=== PATIENT | male | born 1970 ===

== ENCOUNTER 2017-05-10 02:30 | Day surgery (SDC) | payer OTHER ==
[~2017-05-10] VITALS: Ht 177.8 cm; Wt 99.3 kg
[~2017-05-10 02:30] MED LIST: AMLO-96 PO; LOSA50TA72 PO; METO25TA23 PO
[2017-05-10] MEDS: NORMOSOL R SOLN(*) 1000 ML BAG 1,000 ML IV PRN ×2 (10:07→13:45)
[2017-05-10 10:19] VITALS: BP 154/97
[2017-05-10] MEDS ORDERED: BUPIV/EPI 0.25% 1:200,000 50ML INFIL ONE (10:30)
[2017-05-10] MEDS ORDERED: MORPHINE 10 MG/ML SYR ONE ×2 (10:31→11:29)
[2017-05-10] MEDS ORDERED: NS(*) 0.9% 10 ML VIAL 0 ML ONE (10:32)
[2017-05-10] MEDS ORDERED: BUPIVACAIN 0.25% INJ 50ML VIAL ONE ×2 (10:32→11:29)
[2017-05-10] MEDS ORDERED: LIDO/EPI 1% MDV 1:100,000 20ML INFIL ONE ×2 (10:33→11:29)
[2017-05-10] MEDS ORDERED: NS(*) 0.9% 10 ML VIAL 10 ML ONE (11:29)
[2017-05-10] MEDS ORDERED: ceFAZolin(*) 2GM/D5W 50ML 50 ML IVPB ONE (11:30)
[2017-05-10] MEDS ORDERED: FAMOTIDINE 20 MG TAB PO ONE (11:30)
[2017-05-10] MEDS ORDERED: MIDAZOLAM 2 MG/2 ML VIAL IVP PRN (11:30)
[2017-05-10] MEDS ORDERED: LIDOCAINE/SOD BICARB 8.4% SYR ID ONE (11:30)
[2017-05-10] MEDS ORDERED: fentaNYL CITR 100 MCG/2 ML AMP ONE ×4 (11:35→13:49)
[2017-05-10] MEDS ORDERED: LIDOCAINE 2% IV 100 MG/5ML SYR ONE (11:36)
[2017-05-10] MEDS ORDERED: PROPOFOL EMUL(*) 10MG/ML 20 ML 20 ML ONE (11:36)
[2017-05-10] MEDS ORDERED: DEXAMETHASONE SOD 4 MG/ML VIAL ONE (12:16)
[2017-05-10] MEDS ORDERED: ONDANSETRON 4 MG/2 ML VIAL ONE (12:17)
[2017-05-10] MEDS ORDERED: KETOROLAC 30 MG/ML VIAL ONE (12:17)
[2017-05-10] MEDS ORDERED: LACTATED RINGER 3000 ML BAG IR ONE (12:38)
[2017-05-10] MEDS ORDERED: HYDR-4309 PO (14:19)
[2017-05-10] MEDS ORDERED: CEPH500T7 PO (14:20)
[2017-05-10] MEDS ORDERED: APAP/HYDROCODONE 325/5 TAB ONE (14:24)
[2017-05-10 14:30] VITALS: BP 142/93
[2017-05-10 14:45] VITALS: BP 124/72
[2017-05-10 15:00] VITALS: BP 122/75
[2017-05-10 15:43] VITALS: BP 140/84
[2017-05-10 15:45] VITALS: BP 130/93
[2017-05-10] MEDS ORDERED: PROMETHAZINE 25 MG/ML 1 ML AMP ONE (15:55)
--- NOTE | 2017-05-11 15:03 | OPERATIVE REPORT 1 ---
EVENT DATE: May 10, 2017 SURGEON: Ashwin Sampson MD ANESTHESIOLOGIST: Tony Lin MD ANESTHESIA: LMA DATABASE MODELER: Theo Orr PA-C PREOPERATIVE DIAGNOSES 1. Right knee medial meniscus posterior horn root tear. 2. Chondromalacia. POSTOPERATIVE DIAGNOSES 1. Right knee medial meniscus posterior horn root tear. 2. Chondromalacia. 3. Small posterior horn lateral meniscus tear. PROCEDURES PERFORMED 1. Right knee arthroscopy with medial meniscus root repair. 2. Chondroplasty trochlea. 3. Partial lateral meniscectomy. ESTIMATED BLOOD LOSS Minimal COMPLICATIONS None. DRAINS None. SPECIMENS None. IMPLANTS USED We have an Arthrex suture tape times two and an ABS button times one. TOURNIQUET TIME See anesthesia record. HISTORY The patient is a 47-year-old male with history of right knee pain. He was seen and evaluated in the [facility] and found to have a medial meniscus tear of the root. Following discussion of the risks, benefits, alternatives, as well as possible complications of surgical and nonsurgical intervention with him, he wished to proceed with surgical intervention. DESCRIPTION OF PROCEDURE The patient was brought to the operating room and placed on the operating table in the supine position. Proper timeout was performed identifying the patient, limits of surgery, and surgical procedure. The patient was given preoperative IV antibiotics and underwent LMA anesthesia. A well-padded upper thigh tourniquet was placed on the right lower extremity. The right lower extremity was prepped and draped in sterile orthopedic fashion. Knee examination demonstrated a negative Pramod's, a negative anterior drawer, and negative posterior drawer. MCL and ACL were stable preoperatively and postoperatively. Once complete, superomedial and posterior portals were established after the tourniquet was brought up to 250 mmHg. The knee was insufflated. A distal lateral camera port was established. The camera was placed intra-articularly. The suprapatellar pouch demonstrated some loose articular cartilage debris which was very minimal, but was removed with suctioning. The medial and lateral gutters were cleared. The patella was in good condition, but the trochlea demonstrated significant grade II-III change with loose articular cartilage flaps. The medial compartment was visualized. Medial portal was established under direct visualization. A probe was placed intra-articularly. There were some grade I chondral wear on the femoral condyle and tibial plateau. No major defects, however. Unfortunately, there was a large radial root tear with degenerative ends on the posterior horn medial meniscus. This was a root avulsion. It was about 1 cm to 1.5 cm more medial than the root. The ACL was then visualized and was intact. The PCL was intact. The lateral compartment was visualized. The lateral meniscus demonstrated just some very small fraying at the posterior root near the posterior root of the lateral meniscus. This was debrided with a shaver until stable tissue was obtained. The remainder of the meniscus was in excellent condition. Once this was complete, chondroplasty was performed on the trochlea through both the medial and lateral portals until stable articular cartilage was obtained. The percutaneous release of the MCL was then performed with an 18-gauge spinal needle. Once we were able to open up the medial compartment nicely, we were able to visualize the meniscal root tear. We drove the posteromedial recess of the knee and evaluated this and obtained a posteromedial portal with blunt technique to allow for release of the meniscal capsular junction posterolaterally. This was performed with a back-biter and shaver to mobilize the border of the medial root for advancement. Once this was complete, the edge of the meniscus was debrided until stable tissue was obtained. The [employer] meniscal root repair guide was then set to 55 degrees angulation. Coming across from the lateral side, the guide pin was drilled to a depth of 60 mm, and a relay suture was relayed. An anteromedial 8.5 mm cannula was placed. The [employer] meniscal suture passer was utilized to pass a #2 suture tape through the meniscus, one placed posteriorly, and this had nice bite in the meniscus. This was relayed through the bone tunnel, and a second suture was placed anteromedial to this, and it relayed through a similar tunnel. These were then tensioned, nicely reapproximating the meniscus back down to the root. The repair site was just medialized because of the centimeter loss. Of note, we did utilize the meniscal curette to remove the articular cartilage at the meniscal footprint site to bleeding subchondral bone prior to passing of the sutures. Once this was complete, the sutures were tied under direct visualization over the ABS button without any difficulty, nicely securing the meniscus. We had full range of motion in the knee. All instrument was removed. The knee was drained. Portal sites were closed with 4-0 Monocryl. Standard postoperative dressing, IceMan, and T Scope hinged knee brace locked in extension were applied. The patient tolerated the procedure well. He was extubated and transferred to the PACU in stable condition. He will be placed on my meniscal root repair protocol with touchdown weightbearing for six weeks, and he will follow up with me in seven to 10 days. [facility]
== END 2017-05-10 14:30 | disposition home or self-care (01) ==
LOC: OR 02:30
PROVIDERS: ATTEND Orthopaedic Surgery
DX: S83.241A Other tear of medial meniscus, current injury, right knee, initial encounter (principal); S83.281A Other tear of lateral meniscus, current injury, right knee, initial encounter; M94.261 Chondromalacia, right knee
CPT/HCPCS: 29880; C1713; J1100; J1885; J2001; J2270; J2405; J2550; J2704; J3010; J3490; J0690